=== PATIENT | female | born 1970 | race Caucasian/White ===

== ENCOUNTER 2021-07-06 14:51 | Inpatient (IN) | payer OTHER ==
[~2021-07-06] VITALS: Ht 167.6 cm; Wt 67.8 kg
[2021-07-06 19:31] LABS: HEMOGLOBIN 8.7 gm/dl (12.3-15.3); RED BLOOD COUNT 2.96 M/UL (4.00-5.10); WHITE BLOOD COUNT 8.3 K/UL (4.5-11.0)
[2021-07-06 19:40] LABS: BUN/CREATININE RATIO 36 (0-10)
[2021-07-07 11:14] LABS: WHITE BLOOD COUNT 8.5 K/UL (4.5-11.0)
[2021-07-07 11:15] LABS: HEMOGLOBIN 10.9 gm/dl (12.3-15.3); RED BLOOD COUNT 3.73 M/UL (4.00-5.10)
[2021-07-07 11:19] LABS: BUN/CREATININE RATIO 31 (0-10)
[2021-07-08 05:04] LABS: HEMOGLOBIN 10.2 gm/dl (12.3-15.3); RED BLOOD COUNT 3.48 M/UL (4.00-5.10); WHITE BLOOD COUNT 6.6 K/UL (4.5-11.0)
[2021-07-08 05:29] LABS: BUN/CREATININE RATIO 26 (0-10)
[2021-07-09 05:05] LABS: RED BLOOD COUNT 3.46 M/UL (4.00-5.10)
[2021-07-09 05:08] LABS: WHITE BLOOD COUNT 4.6 K/UL (4.5-11.0)
[2021-07-09 05:32] LABS: BUN/CREATININE RATIO 17 (0-10)
[2021-07-10 05:56] LABS: HEMOGLOBIN 10.9 gm/dl (12.3-15.3); RED BLOOD COUNT 3.68 M/UL (4.00-5.10); WHITE BLOOD COUNT 5.1 K/UL (4.5-11.0)
[2021-07-10 06:15] LABS: BUN/CREATININE RATIO 25 (0-10)
[2021-07-11 04:27] LABS: HEMOGLOBIN 11.3 gm/dl (12.3-15.3); RED BLOOD COUNT 3.88 M/UL (4.00-5.10); WHITE BLOOD COUNT 5.6 K/UL (4.5-11.0)
[2021-07-11 04:59] LABS: BUN/CREATININE RATIO 26 (0-10)
[2021-07-12 05:52] LABS: HEMOGLOBIN 12.7 gm/dl (12.3-15.3); WHITE BLOOD COUNT 6.1 K/UL (4.5-11.0)
[2021-07-12 05:57] LABS: RED BLOOD COUNT 4.29 M/UL (4.00-5.10)
[2021-07-12 06:10] LABS: BUN/CREATININE RATIO 30 (0-10)
[2021-07-13 04:54] LABS: HEMOGLOBIN 13.7 gm/dl (12.3-15.3); RED BLOOD COUNT 4.65 M/UL (4.00-5.10); WHITE BLOOD COUNT 7.2 K/UL (4.5-11.0)
[2021-07-13 05:17] LABS: BUN/CREATININE RATIO 36 (0-10)
[2021-07-14 05:21] LABS: HEMOGLOBIN 13.7 gm/dl (12.3-15.3); RED BLOOD COUNT 4.68 M/UL (4.00-5.10); WHITE BLOOD COUNT 7.8 K/UL (4.5-11.0)
[2021-07-14 05:50] LABS: BUN/CREATININE RATIO 39 (0-10)
[2021-07-15 04:32] LABS: HEMOGLOBIN 13.6 gm/dl (12.3-15.3); RED BLOOD COUNT 4.66 M/UL (4.00-5.10); WHITE BLOOD COUNT 6.9 K/UL (4.5-11.0)
[2021-07-15 04:53] LABS: BUN/CREATININE RATIO 40 (0-10)
[2021-07-16 09:15] LABS: HEMOGLOBIN 14.6 gm/dl (12.3-15.3); RED BLOOD COUNT 4.95 M/UL (4.00-5.10); WHITE BLOOD COUNT 7.2 K/UL (4.5-11.0)
[2021-07-16 09:44] LABS: BUN/CREATININE RATIO 43 (0-10)
[2021-07-17 09:30] LABS: HEMOGLOBIN 14.3 gm/dl (12.3-15.3); RED BLOOD COUNT 4.87 M/UL (4.00-5.10); WHITE BLOOD COUNT 8.5 K/UL (4.5-11.0)
[2021-07-17 09:44] LABS: BUN/CREATININE RATIO 41 (0-10)
[2021-07-18 07:43] LABS: HEMOGLOBIN 15.4 gm/dl (12.3-15.3)
[2021-07-18 08:11] LABS: RED BLOOD COUNT 5.39 M/UL (4.00-5.10); WHITE BLOOD COUNT 13.6 K/UL (4.5-11.0)
[2021-07-18 08:26] LABS: BUN/CREATININE RATIO 45 (0-10)
[2021-07-19 03:09] LABS: HEMOGLOBIN 13.7 gm/dl (12.3-15.3)
[2021-07-19 03:10] LABS: RED BLOOD COUNT 4.77 M/UL (4.00-5.10); WHITE BLOOD COUNT 8.2 K/UL (4.5-11.0)
[2021-07-19 03:37] LABS: BUN/CREATININE RATIO 49 (0-10)
--- NOTE | 2021-07-20 14:52 | NUR ---
PATIENT ARRIVES ON FLOOR AT 1142AM FROM ICU PER ICU STAFF. AGREE WITH ICU NURSE ASSESSMENT.
[2021-07-22 12:53] LABS: BUN/CREATININE RATIO 47 (0-10)
[2021-07-23 03:54] LABS: BUN/CREATININE RATIO 51 (0-10)
[2021-07-24 03:35] LABS: BUN/CREATININE RATIO 29 (0-10); HEMOGLOBIN 11.9 gm/dl (12.3-15.3); RED BLOOD COUNT 4.1 M/UL (4.00-5.10)
[2021-07-25 03:38] LABS: BUN/CREATININE RATIO 29 (0-10)
[2021-07-28 08:49] LABS: BUN/CREATININE RATIO 25 (0-10)
[2021-07-31 16:48] LABS: HEMOGLOBIN 14.3 gm/dl (12.3-15.3); RED BLOOD COUNT 5.1 M/UL (4.00-5.10); WHITE BLOOD COUNT 1.7 K/UL (4.5-11.0)
[2021-07-31 16:56] LABS: BUN/CREATININE RATIO 35 (0-10)
--- NOTE | 2021-08-01 00:46 | NUR ---
DURING SHIFT REPORT RN ATTEMPTING TO GAIN IV ACCESS. 1834 IV ACCESS 20LW VANCOMYCIN IS STARTED. 1914 NOTIFIED COLLINS OF PT VITALS BP-89/54 TEMP 101.7, HR-140'S, 02-99, WBC 1.7. ORDERS GIVEN STAT EKG,STAT LACTIC ACID, PLACE PT ON SEPSIS PROTOCOL, N/S BOLUS 30CC PER KG NOW, NOTIFIED HIM OF VANCOMYCIN JUST GETTING STARTED DUE TO IV ACCESS, NOTIFY HIM BACK AFTER BOLUS OF PATIENT STATUS. 1919 BOLUS WAS STARTED IMMEDIATLEY INFILTRATED. NOTIFIED RESOURCE RN FOR ASSISTANCE DUE TO THE TROUBLE OF IV ACCESS EARILER ON . MULTIPLE ATTEMPTS OF GAIINGIN ACCESS. ULTRASOUND MACHINE IS OBTAINED. 1999 DR. GUADALUPE CALLS TO CHECK ON PT, NOTIFY HIM OF IV ACCESS AND THAT RN IS ATTEMPTING WITH ULTRASOUND, ORDER GIVEN FOR TYLENOL 1GRAM NOW, STATED THAT AFTER BOLUS IF NO IMPROVEMENT TRANSFER PT TO PCU. AFTER MULTIPLE ATTEMPTS TIRE MOLD ENGRAVER IS CALLED FOR ASSISTANCE. APPROX 2019 3 IVS ARE PLACED WITH ULTRASOUND AND BOLUS AND VANCOMYCIN IS CONTINUED. 2051 LAB CALLS WITH CRITICAL LAB OF LACTIC ACID OF 73.4, 2101 DR HARDIN IS NOTIFIED OF [place], HE ASKED FOR UPDATE ON PT WELL. STATES TO FOLLOW SEPSIS PROTOCOL AND UPDATE HIM WHEN BOLUS IS FINISHED. APPROX 2136 VITALS ARE CHECKED AFTER FIRST 1LITER OF BOLUS BP-70/45,71/47, TEMP-98, 02-98%,HR112. 2ND BAG IS ADMINSTERED. [address] 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
[2021-08-01 07:30] LABS: ACINETOBACTER BAUMANNII Not Detected (Negative); CANDIDA ALBICANS Not Detected (Negative); CANDIDA KRUSEI Not Detected (Negative); CANDIDA TROPICALIS Not Detected (Negative); ENTEROCOCCUS Not Detected (Negative); ESCHERICHIA COLI Not Detected (Negative); HAEMOPHILUS INFLUENZAE Not Detected (Negative); KLEBSIELLA OXYTOCA Not Detected (Negative); KLEBSIELLA PNEUMONIAE Not Detected (Negative); KPC-CARBAPENEM-RESISTANCE GENE Not Detected (Negative); PROTEUS Not Detected (Negative); PSEUDOMONAS AERUGINOSA Not Detected (Negative); STAPHYLOCOCCUS Not Detected (Negative); STAPHYLOCOCCUS AUREUS Not Detected (Negative); STREP AGALACTIAE (GROUP B) Not Detected (Negative); STREP PYOGENES (GROUP A) Not Detected (Negative); STREPTOCOCCUS Not Detected (Negative); mecA (METHICILLIN RESIST GENE Not Detected (Negative); vanA/B (VANCOMYCIN RESIST GENE Not Detected (Negative)
[2021-08-01 08:53] LABS: SERRATIA MARCESANS DETECTED (Negative)
[2021-08-01 09:08] LABS: BUN/CREATININE RATIO 35 (0-10)
[2021-08-01 09:14] LABS: WHITE BLOOD COUNT 23.7 K/UL (4.5-11.0)
[2021-08-01 09:15] LABS: HEMOGLOBIN 11.7 gm/dl (12.3-15.3); RED BLOOD COUNT 4.02 M/UL (4.00-5.10)
--- NOTE | 2021-08-01 10:28 | NUR ---
LATE ENTRY 0738 DR. MARTELL AT BEDSIDE NOTIFIED OF GRAM NEGATIVE RODS ON BLOOD CULTURE.
[2021-08-02 05:18] LABS: HEMOGLOBIN 10.1 gm/dl (12.3-15.3)
[2021-08-02 05:21] LABS: RED BLOOD COUNT 3.52 M/UL (4.00-5.10); WHITE BLOOD COUNT 13.2 K/UL (4.5-11.0)
[2021-08-02 05:52] LABS: BUN/CREATININE RATIO 25 (0-10)
[2021-08-03 05:25] LABS: HEMOGLOBIN 11.3 gm/dl (12.3-15.3); RED BLOOD COUNT 3.95 M/UL (4.00-5.10); WHITE BLOOD COUNT 10.6 K/UL (4.5-11.0)
[2021-08-03 05:50] LABS: BUN/CREATININE RATIO 20 (0-10)
[2021-08-04 04:27] LABS: HEMOGLOBIN 12.4 gm/dl (12.3-15.3); RED BLOOD COUNT 4.32 M/UL (4.00-5.10); WHITE BLOOD COUNT 9.4 K/UL (4.5-11.0)
[2021-08-04 05:00] LABS: BUN/CREATININE RATIO 23 (0-10)
[2021-08-05 04:47] LABS: HEMOGLOBIN 11.6 gm/dl (12.3-15.3); RED BLOOD COUNT 4.07 M/UL (4.00-5.10); WHITE BLOOD COUNT 7.7 K/UL (4.5-11.0)
[2021-08-05 05:44] LABS: BUN/CREATININE RATIO 23 (0-10)
[2021-08-06 08:01] LABS: HEMOGLOBIN 11.5 gm/dl (12.3-15.3); RED BLOOD COUNT 4.11 M/UL (4.00-5.10)
[2021-08-06 08:03] LABS: WHITE BLOOD COUNT 14.7 K/UL (4.5-11.0)
[2021-08-06 08:33] LABS: BUN/CREATININE RATIO 39 (0-10)
[2021-08-07 06:59] LABS: HEMOGLOBIN 11.5 gm/dl (12.3-15.3)
[2021-08-07 07:01] LABS: WHITE BLOOD COUNT 10.3 K/UL (4.5-11.0)
[2021-08-07 07:32] LABS: BUN/CREATININE RATIO 30 (0-10)
--- NOTE | 2021-08-07 12:35 | NUR ---
RN NOTED SCANT AMOUNT OF BLOOD BENEATH TR BAND BETWEEN 15 MINUTE CHECKS. NO ACTIVE BLEEDING NOTED, NO AIR RELEASED FOR 15 ADDITIONAL MINUTES. RECHECKED AT 1250. NO ADDITIONAL BLEEDING TO SITE. PATIENT WIGGLES FINGERS ON RIGHT HAND. DENIES PAIN AND DISCOMFORT.
[2021-08-08 09:22] LABS: HEMOGLOBIN 11.1 gm/dl (12.3-15.3); RED BLOOD COUNT 3.94 M/UL (4.00-5.10); WHITE BLOOD COUNT 9.3 K/UL (4.5-11.0)
[2021-08-08 09:52] LABS: BUN/CREATININE RATIO 37 (0-10)
[2021-08-09 06:56] LABS: HEMOGLOBIN 11.4 gm/dl (12.3-15.3); WHITE BLOOD COUNT 8.8 K/UL (4.5-11.0)
[2021-08-09 07:40] LABS: BUN/CREATININE RATIO 33 (0-10)
[2021-08-10 06:56] LABS: HEMOGLOBIN 12.3 gm/dl (12.3-15.3); RED BLOOD COUNT 4.28 M/UL (4.00-5.10)
[2021-08-10 07:59] LABS: BUN/CREATININE RATIO 31 (0-10)
[2021-08-11 06:22] LABS: HEMOGLOBIN 12.6 gm/dl (12.3-15.3); RED BLOOD COUNT 4.57 M/UL (4.00-5.10)
[2021-08-11 06:24] LABS: WHITE BLOOD COUNT 10.1 K/UL (4.5-11.0)
[2021-08-11 06:44] LABS: BUN/CREATININE RATIO 28 (0-10)
[2021-08-13 05:39] LABS: HEMOGLOBIN 11.1 gm/dl (12.3-15.3); RED BLOOD COUNT 3.9 M/UL (4.00-5.10); WHITE BLOOD COUNT 6.1 K/UL (4.5-11.0)
[2021-08-13 06:15] LABS: BUN/CREATININE RATIO 34 (0-10)
[2021-08-14 06:25] LABS: HEMOGLOBIN 11.2 gm/dl (12.3-15.3); RED BLOOD COUNT 3.99 M/UL (4.00-5.10); WHITE BLOOD COUNT 5.6 K/UL (4.5-11.0)
[2021-08-14 06:39] LABS: BUN/CREATININE RATIO 37 (0-10)
[2021-08-15 07:22] LABS: HEMOGLOBIN 11.9 gm/dl (12.3-15.3); RED BLOOD COUNT 4.33 M/UL (4.00-5.10); WHITE BLOOD COUNT 7.7 K/UL (4.5-11.0)
[2021-08-15 07:53] LABS: BUN/CREATININE RATIO 33 (0-10)
[2021-08-22 15:35] LABS: BORDETELLA PARAPERTUSSIS Not Detected (Not Detectd); BORDETELLA PERTUSSIS Not Detected (Not Detectd); CHLAMYDIA PNEUMONIAE Not Detected (Not Detectd); CORONAVIRUS HKU1 Not Detected (Not Detectd); CORONAVIRUS NL63 Not Detected (Not Detectd); CORONAVIRUS OC43 Not Detected (Not Detectd); CORONOAVIRUS 229E Not Detected (Not Detectd); HUMAN METAPNEUMOVIRUS Not Detected (Not Detectd); HUMAN RHINOVIRUS/ENTEROVIRUS Not Detected (Not Detectd); INFLUENZA A Not Detected (Not Detectd); INFLUENZA B Not Detected (Not Detectd); MYCOPLASMA PNEUMONIAE Not Detected (Not Detectd); PARAINFLUENZA VIRUS 1 Not Detected (Not Detectd); PARAINFLUENZA VIRUS 2 Not Detected (Not Detectd); PARAINFLUENZA VIRUS 3 Not Detected (Not Detectd); PARAINFLUENZA VIRUS 4 Not Detected (Not Detectd); RESPIRATORY SYNCYTIAL VIRUS Not Detected (Not Detectd)
[2021-08-22 15:47] LABS: RED BLOOD COUNT 4.02 M/UL (4.00-5.10); WHITE BLOOD COUNT 8.4 K/UL (4.5-11.0)
[2021-08-22 16:04] LABS: BUN/CREATININE RATIO 34 (0-10)
[2021-08-22 16:37] LABS: SARS-CoV-2 NOT DETECTED (Not Detectd)
[2021-08-23 06:19] LABS: RED BLOOD COUNT 4.33 M/UL (4.00-5.10)
[2021-08-23 07:06] LABS: BUN/CREATININE RATIO 37 (0-10)
[2021-08-24 06:25] LABS: HEMOGLOBIN 11.2 gm/dl (12.3-15.3); WHITE BLOOD COUNT 7.6 K/UL (4.5-11.0)
[2021-08-24 06:41] LABS: BUN/CREATININE RATIO 35 (0-10)
[2021-08-24] MEDS ORDERED: CIPROFLOXACIN500 M1 PO (09:42)
[2021-08-24] MEDS ORDERED: COMBIVENT RESPIM4 GM INH (09:42)
--- NOTE | 2021-08-24 12:45 | NUR ---
TELE REMOVED, IV REMOVED, TUBE FEEDING DISCONNECTED. REPORT CALLED TO LONG TERM, DAUGHTER AWARE OF TRANSFER AND PT AWAITING EMS FOR TRANSFER TO LONG TERM.
== END 2021-08-24 16:43 | DRG 871 ==
LOC: CCU 17:44 → MED SURG 4 17:44 → PROG CARE 17:44 → MED SURG 4 07-25 16:20 → CCU 07-31 22:27 → MED SURG 4 08-05 09:35
PROVIDERS: Internal Medicine; ADMIT Internal Medicine
PROC: 0DH67UZ Insertion of Feeding Device into Stomach, Via Natural or Artificial Opening (ICD-10-PCS; principal; 2021-07-06)
PROC: 02HV33Z Insertion of Infusion Device into Superior Vena Cava, Percutaneous Approach (ICD-10-PCS; 2021-07-07)
DX: A41.02 Sepsis due to Methicillin resistant Staphylococcus aureus (principal); G93.41 Metabolic encephalopathy; J15.212 Pneumonia due to Methicillin resistant Staphylococcus aureus; J96.21 Acute and chronic respiratory failure with hypoxia; R65.21 Severe sepsis with septic shock; E87.0 Hyperosmolality and hypernatremia; G93.1 Anoxic brain damage, not elsewhere classified; E87.2 Acidosis; N39.0 Urinary tract infection, site not specified; R74.01 Elevation of levels of liver transaminase levels; E87.6 Hypokalemia; D64.9 Anemia, unspecified; B96.1 Klebsiella pneumoniae [K. pneumoniae] as the cause of diseases classified elsewhere; Z20.822 Contact with and (suspected) exposure to COVID-19; J40 Bronchitis, not specified as acute or chronic; Z93.0 Tracheostomy status; Z87.820 Personal history of traumatic brain injury; Z79.899 Other long term (current) drug therapy; Z79.52 Long term (current) use of systemic steroids
CPT/HCPCS: 36415; 36600; 71045; 80048; 80053; 80202; 81001; 82803; 83605; 83735; 84100; 84132; 85007; 85025; 85027; 86140; 87040; 87070; 87077; 87086; 87150; 87186; 87205; 87633; 93005; 94002; 94003; 94640; 94664; 94760; A6212; C9113; J0692; J0696; J1335; J1650; J2185; J2250; J3370; J7030; J7040; J7050; J7070; U0002